=== PATIENT | female | born 1980 | race American Indian/Alaskan Native ===

== ENCOUNTER 2020-01-12 12:48 | Outpatient (CLI) | payer MEDICAID ==
[2020-01-12 14:52] VITALS: BP 119/60
[2020-01-12] MEDS ORDERED: LACTATED RINGERS 500 ML IV ONE (14:53)
[2020-01-12 16:04] LABS: Bilirubin,Urine NEG (Negative); Blood,Urine NEG (Negative); Color,Urine Amber (Yellow); Mucus,Urine 3+ /HPF; Urobilinogen,Urine < 2.0 mg/dL (<2.0)
[2020-01-12] MEDS ORDERED: LACTATED RINGERS 1,000 ML ONE (17:29)
== END 2020-01-12 18:52 | disposition home or self-care (01) ==
LOC: TRG 12:48 → APU 12:48 → TRG 18:52
PROVIDERS: ATTEND Obstetrics & Gynecology
DX: O26.892 Other specified pregnancy related conditions, second trimester (principal); O09.522 Supervision of elderly multigravida, second trimester; O47.02 False labor before 37 completed weeks of gestation, second trimester; Z3A.27 27 weeks gestation of pregnancy
CPT/HCPCS: 59025; 81001; J7120; 96360

== ENCOUNTER 2020-01-19 17:39 | Outpatient (CLI) | payer MEDICAID ==
[2020-01-19 18:12] VITALS: BP 119/70
[2020-01-19 18:46] LABS: Bacteria,Urine 1+ /HPF (Negative); Bilirubin,Urine NEG (Negative); Blood,Urine NEG (Negative); Color,Urine Yellow (Yellow); Mucus,Urine 3+ /HPF; Urobilinogen,Urine < 2.0 mg/dL (<2.0)
[2020-01-19] MEDS ORDERED: LACTATED RINGERS 1,000 ML IV SCH (19:00)
== END 2020-01-19 19:37 | disposition home or self-care (01) ==
LOC: TRG 17:39 → APU 17:41 → TRG 19:37
PROVIDERS: ATTEND Obstetrics & Gynecology
DX: O47.02 False labor before 37 completed weeks of gestation, second trimester (principal); Z3A.28 28 weeks gestation of pregnancy
CPT/HCPCS: 81001; J7120